=== PATIENT | female | born 1990 | race Caucasian/White ===

== ENCOUNTER 2020-11-21 00:24 | Emergency (ER) | payer OTHER ==
[2020-11-21 04:22] LABS: HEMOGLOBIN 13.1 gm/dl (12.3-15.3); RED BLOOD COUNT 4.81 M/UL (4.00-5.10)
[2020-11-21 04:40] LABS: BUN/CREATININE RATIO 24 (0-10)
== END 2020-11-21 08:21 | disposition home or self-care (01) ==
LOC: ER1 00:24
PROVIDERS: Family Medicine
DX: R59.0 Localized enlarged lymph nodes (principal); I10 Essential (primary) hypertension; Z20.822 Contact with and (suspected) exposure to COVID-19
CPT/HCPCS: 0241U; 36415; 70488; 80053; 85025; 87081; 87880; 96374; 99284; J1885; Q9967